=== PATIENT | female | born 1955 | race Caucasian/White ===

== ENCOUNTER 2017-09-18 20:35 | Emergency (ER) | payer OTHER ==
[~2017-09-18] VITALS: Ht 162.6 cm; Wt 71.2 kg
[~2017-09-18 20:35] MED LIST: APAP500 PO; ASPIRIN; ASPIRIN325 PO; ASPIRIN81 M2; AZITHROMYCIN250 MG PO; DIFLUCAN200 MG PO; ERYTHROMYCIN500 MG PO; FLAGYL500 MG PO; HYDROCODONE-APA1 TA1 PO; IBUPROFEN 800800 M1 PO; IBUPROFEN 800800 MG PO; KEFLEX500 MG PO; LIDOCAINE VISC100 M1 MM; MOBIC7.5 MG PO; NORCO 5-325 TA1 EACH PO; PHENERGAN 25 MG25 M1 PO; SUPRAX400 M1 PO; TRAMADOL 50 MG50 MG PO; ULTRAM 50MG TAB50 MG PO; ULTRAM50 MG PO; VITAMIN B-12500 MCG; VITAMINC500
[2017-09-18] MEDS ORDERED: MEDROLDOSEPACK PO (21:55)
[2017-09-18 22:01] VITALS: BP 147/88
== END 2017-09-18 22:05 | disposition home or self-care (01) ==
LOC: M.ERS 20:35
DX: M25.472 Effusion, left ankle (principal); F17.210 Nicotine dependence, cigarettes, uncomplicated; Z88.6 Allergy status to analgesic agent; Z88.0 Allergy status to penicillin

== ENCOUNTER 2017-12-04 23:10 | Emergency (ER) | payer OTHER ==
[~2017-12-04] VITALS: Ht 162.6 cm; Wt 65.8 kg
[~2017-12-04 23:10] MED LIST changes: +MEDROLDOSEPACK PO
[2017-12-04 23:14] VITALS: BP 132/76
[2017-12-04] MEDS ORDERED: IBUPROFEN 800800 M1 (23:21)
[2017-12-04] MEDS ORDERED: NORCO 5-325 TA1 EACH PO (23:36)
[2017-12-04] MEDS ORDERED: MEDROLDOSEPACK PO (23:36)
== END 2017-12-04 23:40 | disposition home or self-care (01) ==
LOC: M.ERS 23:10
DX: M25.472 Effusion, left ankle (principal); F17.210 Nicotine dependence, cigarettes, uncomplicated; Z88.0 Allergy status to penicillin; Z88.8 Allergy status to other drugs, medicaments and biological substances

== ENCOUNTER → 2019-07-11 | Emergency (ER) | payer OTHER ==
[~2019-07-11] VITALS: Ht 162.6 cm; Wt 61.2 kg
[~2019-07-11] MED LIST changes: +IBUPROFEN 800800 M1
[2019-07-11 16:11] VITALS: BP 143/77
== END ==
LOC: M.ERS 16:02
DX: T16.2XXA Foreign body in left ear, initial encounter (principal); F17.210 Nicotine dependence, cigarettes, uncomplicated; Z88.6 Allergy status to analgesic agent; Z88.0 Allergy status to penicillin; Y92.89 Other specified places as the place of occurrence of the external cause